=== PATIENT | female | born 1965 | race African-American/Black ===

== ENCOUNTER 2018-01-28 20:50 | Emergency (ER) | payer MEDICAID, OTHER ==
[~2018-01-28] VITALS: Ht 175.3 cm; Wt 83.9 kg
[~2018-01-28 20:50] MED LIST: BACTRIM DS TAB1 EAC1 ORAL; DOXYCYCLINE MO100 MG ORAL; NKM
--- NOTE | 2018-01-28 21:29 | Emergency Room Report ---
History of Present Illness General Chief Complaint: To Be Triaged Source: Patient Present Illness HPI This is a 52-year-old female who presents with chief complaint of left ankle pain. 2 days ago she stepped off a platform and volar left ankle and fell onto it. Complaining of severe pain to the whole foot and ankle area. Pain is 9 out of 10. Unable to bear weight. Denies any loss of consciousness or other injury. No knee pain. Allergies: Coded Allergies: No Known Allergies (Unverified , 12/10/14) Patient History Past Medical History: see triage record, old chart reviewed Past Surgical History: none Pertinent Family History: none Social History: Denies: smoking Now: No Immunizations: other Reviewed Nursing Documentation: PMH: Agreed; PSxH: Agreed Review of Systems Eye: Denies: eye pain, blurred vision ENT: Denies: ear pain, nose congestion, throat swelling Respiratory: Denies: cough, shortness of breath Cardiovascular: Denies: chest pain, palpitations Gastrointestinal: Denies: abdominal pain, diarrhea, nausea, vomiting Musculoskeletal: Reports: joint pain, joint swelling; Denies: back pain Skin: Denies: rash Neurological: Denies: headache, numbness Endocrine: Denies: increased thirst, increased urine Hematologic/Lymphatic: Denies: easy bruising All Other Systems: negative except mentioned in HPI Physical Exam Sp02 EP Interpretation: reviewed, normal General Appearance: well appearing, no apparent distress, alert Head: normocephalic, atraumatic Eyes: bilateral eye PERRL, bilateral eye EOMI ENT: hearing grossly normal, normal pharynx Neck: full range of motion, supple, no meningismus Respiratory: chest non-tender, lungs clear, normal breath sounds Cardiovascular #1: regular rate, rhythm, no murmur Gastrointestinal: normal bowel sounds, non tender, no mass, no organomegaly, no bruit, non-distended Musculoskeletal: back normal, other - left ankle: She has diffuse edema mostly laterally extending toum of the foot. Tenderness to that area. Pulses Equal. No knee pain. Psychiatric: mood/affect normal Skin: warm/dry Procedures Splinting Splinting : Consent: Verbal Location: left ankle Hand-Made Type: plaster Splint: poserior short Pre-Proc Neuro Vasc Exam: normal Post-Proc Neuro Vasc Exam: normal Patient Tolerated: Well Complications: None Medical Decision Making Diagnostic Impression: Primary Impression: Moderate left ankle sprain Qualified Codes: S93.402A - Sprain of unspecified ligament of left ankle, initial encounter ER Course Patient presents with a fall and sprained her ankle. No fracture seen. She does have osteoporosis compared to her age. She does not want crutches. She is splinted and will be discharged home. Other X-Ray Diagnostic Results Other X-Ray Diagnostic Results #1: X-Ray ordered: left ankle # of Views/Limited Vs Complete: 3 View Indication: Pain EP Interpretation: Yes Interpretation: no dislocation, no soft tissue swelling, no fractures Impression: No acute disease Electronically Signed by: Ludin Gallardo MD Other X-Ray Diagnostic Results #2: X-Ray ordered: Left foot # of Views/Limited Vs Complete: 3 View Indication: Pain EP Interpretation: Yes Interpretation: no dislocation, no soft tissue swelling, no fractures Impression: No acute disease Electronically Signed by: Ludin Gallardo MD Status: improved Disposition: HOME, SELF-CARE Condition: Stable Scripts Ibuprofen* (MOTRIN*) 600 Mg Tablet 600 MG ORAL THREE TIMES A DAY, #30 TAB 0 Refills Prov: LUDIN GALLARDO M.D. 01/28/18 Hydrocodone/Acetaminophen 5-325* (HYDROCODONE/ACETAMINOPHEN 5-325*) 1 Each Tablet 1 TAB ORAL Q6H PRN for For Pain, #20 TAB 0 Refills Prov: LUDIN GALLARDO M.D. 01/28/18 Additional Instructions: Follow-up with your DrGraciela in 3-5 days. Elevate foot. Ice pack to the area. Return of worse. LUDIN GALLARDO M.D. Jan 28, 2018 21:29
[2018-01-28] MEDS ORDERED: Norco 5mg/325mg tab ORAL ONE (21:30)
[2018-01-28] MEDS ORDERED: HYDROCODON-ACE1 EA15 ORAL (22:25)
[2018-01-28] MEDS ORDERED: IBUPROFEN600 MG ORAL (22:25)
[2018-01-28 23:16] VITALS: BP 155/102
--- NOTE | 2018-01-29 12:44 | Diagnostic Imaging Report ---
Indication: Trauma Technique: 3 views of the left ankle Comparison: none Findings: There is soft tissue swelling medially and laterally. No acute fractures. No dislocations. Small plantar spur noted Impression: No acute bony trauma
--- NOTE | 2018-01-29 12:44 | Diagnostic Imaging Report ---
Indications: Reason For Exam: PAIN Technique: 3 views of the left foot Comparison: None Findings: No acute fractures. No dislocations. Joint spaces are preserved. No radiopaque foreign body. Normal mineralization. There is a small calcaneal spur Impression: No acute process
== END 2018-01-28 23:17 | disposition home or self-care (01) ==
LOC: EMR 22:24
DX: S93.402A Sprain of unspecified ligament of left ankle, initial encounter (principal); W19.XXXA Unspecified fall, initial encounter; Y93.9 Activity, unspecified; Y92.9 Unspecified place or not applicable
CPT/HCPCS: 29515; 99284

== ENCOUNTER 2019-06-20 13:38 | Emergency (ER) | payer MEDICAID, OTHER ==
[~2019-06-20] VITALS: Ht 175.3 cm; Wt 86.2 kg
[~2019-06-20 13:38] MED LIST changes: +HYDROCODON-ACE1 EA15 ORAL; +IBUPROFEN600 MG ORAL
[2019-06-20 13:45] VITALS: BP 154/98
[2019-06-20] MEDS ORDERED: XANAX2 MG ORAL (13:49)
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
[2019-06-20 14:18] LABS: APPEARANCE,URINE CLEAR; BILIRUBIN, URINE NEGATIVE (NEGATIVE); GLUCOSE, URINE (UA) NEGATIVE (NEGATIVE); KETONES,URINE 1+ (NEGATIVE); LEUKOCYTE ESTERASE ,URINE 3+ (NEGATIVE); NITRITE,URINE NEGATIVE (NEGATIVE); PH,URINE 5 (4.5-8.0); PROTEIN,URINE 1+ (NEGATIVE); UROBILINOGEN,URINE NORMAL MG/DL (0.0-1.0)
[2019-06-20 14:27] LABS: COLOR,URINE YELLOW
--- NOTE | 2019-06-20 14:51 | Emergency Room Report ---
History of Present Illness General Chief Complaint: Lower Extremity Injury Source: Medical Record (Ramona Luna) Present Illness HPI 53-year-old female with no significant past medical history here complaining of 10 out of 10 pain in her left heel x1 week. Patient denies any fall or injury. However feels like something stabbing her heel. Patient reports that she has a history of spurs in her spine. Denies pain radiation, tingling or numbness. Has not taken any medication for pain. Patient is wearing a soft brace and reports that it helps. Patient also complains of urinary frequency and vaginal discharge with pruritus. Denies recent sexual activity. Denies hematuria and dysuria. Denies fever and chills and flank pain. Denies chest pain, shortness of breath, palpitation, no other associated symptoms. Denies diabetes and abnormal renal function (Ramona Luna) Allergies: Coded Allergies: No Known Allergies (Unverified , 12/10/14) Patient History Past Medical History: see triage record Past Surgical History: unable to obtain Pertinent Family History: none Last Menstrual Period: menopause Now: No Immunizations: UTD Reviewed Nursing Documentation: PMH: Agreed; PSxH: Agreed (Ramona Luna) Nursing Documentation-PMH Past Medical History: No History, Except For Hx Hypertension: Yes (Ramona Luna) Review of Systems All Other Systems: negative except mentioned in HPI (Ramona Luna) Physical Exam Vital Signs Date Time Temp Pulse Resp B/P (MAP) Pulse Ox O2 Delivery O2 Flow Rate FiO2 06/20/19 13:45 98.1 73 18 154/98 (116) 96 Room Air Sp02 EP Interpretation: reviewed, normal General Appearance: no apparent distress, alert, GCS 15, non-toxic Head: normocephalic, atraumatic Eyes: bilateral eye normal inspection, bilateral eye PERRL ENT: hearing grossly normal, normal pharynx, no angioedema, normal voice Neck: full range of motion, no meningismus, supple/symm/no masses Respiratory: chest non-tender, lungs clear, normal breath sounds, no rhonchi, speaking full sentences Cardiovascular #1: regular rate, rhythm, no edema, no murmur Cardiovascular #2: 2+ dorsalis pedis (R), 2+ dorsalis pedis (L) Gastrointestinal: normal inspection, non tender, soft Genitourinary: normal inspection, no CVA tenderness Musculoskeletal: back normal, gait/station normal, normal range of motion, non- tender, no calf tenderness Neurologic: alert, oriented x3, responsive, motor strength/tone normal, sensory intact, speech normal Psychiatric: judgement/insight normal, memory normal, mood/affect normal, no suicidal/homicidal ideation Skin: no rash Lymphatic: no adenopathy (Ramona Luna) Medical Decision Making PA Attestation All diagnoses and treatment plans were reviewed and discussed with my supervising physician Dr. Chanel (Ramona Luna) Diagnostic Impression: Primary Impression: UTI (urinary tract infection) Additional Impressions: Vaginitis Heel spur ER Course 53-year-old female with no significant past medical history here complaining of 10 out of 10 pain in her left heel x1 week. Patient denies any fall or injury. However feels like something stabbing her heel. Patient reports that she has a history of spurs in her spine. Denies pain radiation, tingling or numbness. Has not taken any medication for pain. Patient is wearing a soft brace and reports that it helps. Patient also complains of urinary frequency and vaginal discharge with pruritus. Denies recent sexual activity. Denies hematuria and dysuria. Denies fever and chills and flank pain. Denies chest pain, shortness of breath, palpitation, no other associated symptoms. Denies diabetes and abnormal renal function Ddx considered but are not limited to: foot fracture, foot sprain, foot contusion, foot strain, heel spur Vital signs: are WNL, pt. is afebrile H&PE are most consistent with: Heel spur, UTI, vaginitis most likely yeast infection ORDERS: foot Xray , Macrobid, Diflucan, ibuprofen ED INTERVENTIONS: None required at this time. DISCHARGE: At this time pt. is stable for d/c to home. Will provide printed patient care instructions, and any necessary prescriptions. Care plan and follow up instructions have been discussed with the patient prior to discharge. Follow with primary care provider take medication as directed referral to lead teller as needed patient agrees with the above treatment. (Ramona Luna) Other X-Ray Diagnostic Results Other X-Ray Diagnostic Results : X-Ray ordered: Foot # of Views/Limited Vs Complete: 3 View Indication: Pain EP Interpretation: Yes PA Xray: Interpretation reviewed, by supervising MD, and agrees with findings. Interpretation: no dislocation, no soft tissue swelling, no fractures Impression: No acute disease Electronically Signed by: Ramona Contreras PA-C (Ramona Luna) Other X-Ray Diagnostic Results : Electronically Signed by: Hayley Robbins documentation of Xray reviewed by me and is accurate, Renny Chanel MD (Renny Chanel MD) Last Vital Signs Date Time Temp Pulse Resp B/P (MAP) Pulse Ox O2 Delivery O2 Flow Rate FiO2 06/20/19 13:45 98.1 73 18 154/98 (116) 96 Room Air (Ramona Luna) Disposition: HOME, SELF-CARE Condition: Stable Scripts Ibuprofen (Ibu) 800 Mg Tablet 800 MG PO BID, #30 TAB Prov: Ramona Luna 06/20/19 Fluconazole (FLUCONAZOLE) 100 Mg Tablet 1.5 TAB ORAL ONCE for 1 Day, #2 TAB 0 Refills Prov: Ramona Luna 06/20/19 Nitrofurantoin Monohyd/M-Cryst* (MACROBID 100 MG*) 100 Mg Capsule 100 MG ORAL EVERY 12 HOURS for 7 Days, #14 CAP Prov: Ramona Luna 06/20/19 Referrals: NOT CHOSEN IPA/,REFERRING (PCP) Patient Instructions: Heel Spur, Urinary Tract Infection, [id number], Vaginitis, [id number] Additional Instructions: Take medication as directed follow-up with your primary care provider for referral to lead teller and further assessment of your heel spur if worsening symptoms return to the emergency room Ramona Luna Jun 20, 2019 14:51 Renny Chanel MD Jun 21, 2019 04:43
[2019-06-20] MEDS ORDERED: IBU800 MG PO (14:53)
[2019-06-20] MEDS ORDERED: NITROFURANTOIN100 M2 ORAL (14:53)
[2019-06-20] MEDS ORDERED: FLUCONAZOLE100 MG ORAL (14:53)
--- NOTE | 2019-06-20 14:59 | Diagnostic Imaging Report ---
Indication: Foot Pain Comparison: None Findings: 3 views of the right foot were obtained. No acute fractures, malalignment, erosions or periostitis are identified. Impression: No acute findings.
--- NOTE | 2019-06-20 15:07 | NUR ---
ED Nurse Note: Patient is being discharged from medical care. D/C instruction/prescripitions given to patient. Patient verbalized understanding of it. Ambulated out with steady gait with all her belongings.
== END 2019-06-20 15:07 | disposition home or self-care (01) ==
LOC: EMR 14:11
DX: N39.0 Urinary tract infection, site not specified (principal); N76.0 Acute vaginitis; M77.52 Other enthesopathy of left foot and ankle; I10 Essential (primary) hypertension
CPT/HCPCS: 81001; 99284

== ENCOUNTER 2020-07-02 22:27 | Emergency (ER) | payer OTHER ==
[~2020-07-02] VITALS: Ht 167.6 cm; Wt 81.6 kg
[~2020-07-02 22:27] MED LIST changes: +FLUCONAZOLE100 MG ORAL; +IBU800 MG PO; +NITROFURANTOIN100 M2 ORAL; +XANAX2 MG ORAL
[2020-07-02] MEDS ORDERED: HYDROCHLOROTH12.5 MG ORAL (22:40)
[2020-07-02] MEDS ORDERED: Tetanus/Diptheria/Pertussis IM ONE (23:00)
[2020-07-02] MEDS ORDERED: Ketorolac 30mg Inj IM ONE (23:00)
[2020-07-02 23:20] VITALS: BP 157/98
--- NOTE | 2020-07-02 23:21 | Diagnostic Imaging Report ---
EXAM: XR Right Ankle Complete, 3 or More Views CLINICAL HISTORY: PAIN TECHNIQUE: Frontal, lateral and oblique views of the right ankle. COMPARISON: No relevant prior studies available. FINDINGS: Bones/joints: No acute fracture. No dislocation. A calcaneal spur is present. No focal osseous erosions. The joint spaces are preserved. Soft tissues: No focal soft tissue edema or radiopaque foreign body. IMPRESSION: No acute abnormality.
--- NOTE | 2020-07-02 23:26 | Diagnostic Imaging Report ---
EXAM: XR Right Foot Complete, 3 or More Views CLINICAL HISTORY: PAIN TECHNIQUE: Frontal, lateral and oblique views of the right foot. COMPARISON: No relevant prior studies available. FINDINGS: Bones/joints: Calcaneal spur is present. No acute fracture. No dislocation. Joint spaces appear intact. Soft tissues: No radiopaque foreign body. No focal edema. IMPRESSION: No acute abnormality. No fracture or dislocation.
[2020-07-02] MEDS ORDERED: IBUPROFEN600 M1 ORAL (23:44)
[2020-07-02] MEDS ORDERED: ATENOLOL50 MG ORAL (23:44)
[2020-07-02] MEDS ORDERED: Bacitracin Oint UD TOPIC ONE (23:45)
[2020-07-02 23:49] VITALS: BP 157/98
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
== END 2020-07-02 23:49 | disposition home or self-care (01) ==
LOC: EMR 22:44
DX: S90.31XA Contusion of right foot, initial encounter (principal); I10 Essential (primary) hypertension; W20.8XXA Other cause of strike by thrown, projected or falling object, initial encounter; Y92.9 Unspecified place or not applicable; Z23 Encounter for immunization
CPT/HCPCS: 29515; 73610; 73630; 90471; 90715; 96372; J1885; Z7502; 99284